=== PATIENT | female | born 1955 | race Caucasian/White ===

== ENCOUNTER → 2022-02-04 12:25 | Outpatient (CLI) | payer MEDICARE, OTHER, SELFPAY ==
--- NOTE | 2022-02-04 | DI.RAD.S_ITS ---
PROCEDURE: XR WRIST LT MIN 3V INDICATIONS: Pain in left hand TECHNIQUE: 4 views of the wrist were acquired. COMPARISON: None. FINDINGS: Bones: No fractures or dislocations. No suspicious bony lesions. Moderate to severe 1st CMC joint space narrowing with periarticular osteophyte formation. Juxta-articular lucencies involving the lunate, scaphoid and the 1st CMC joint. Scaphoid view: Intact scaphoid. Soft tissues: No suspicious soft tissue calcifications. IMPRESSION: 1. 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 2. Juxta-articular lucencies consistent with subchondral cystic change versus bony erosions. Dictated by: Jonel Dunbar [facility] Interpreted: Marina Pham MD on 02/04/2022 at 13:35 Transcribed by: OSVALDO on 02/04/2022 at 13:37 Approved by: Marina Pham M.D. on 02/04/2022 at 14:00
--- NOTE | 2022-02-04 | DI.RAD.S_ITS ---
PROCEDURE: XR HAND LT MIN 3V INDICATIONS: Pain in left hand TECHNIQUE: 3 views of the hand(s) acquired. COMPARISON: None. FINDINGS: Bones: No fractures or dislocations. Carpal bones are normally aligned. No suspicious bony lesions. Polyarticular joint space narrowing with periarticular osteophytosis, most notably and moderate to severe involving the 1st CMC joint. Juxta-articular lucencies involve the 1st CMC joint, the 1st and 3rd MCP joints as well as multiple interphalangeal joints. Soft tissues: No suspicious soft tissue calcifications. IMPRESSION: 1. Diffuse joint degeneration, most notably and moderate to severe involving the 1st CMC joint. 2. Juxta-articular lucencies consistent with subchondral cystic change versus bony erosions. Dictated by: Jonel Dunbar [facility] Interpreted: Marina Pham MD on 02/04/2022 at 13:34 Transcribed by: OSVALDO on 02/04/2022 at 13:35 Approved by: Marina Pham M.D. on 02/04/2022 at 14:00
== END ==
PROVIDERS: PCP Physician Assistant; Referring Provider Physician Assistant; Visit Provider Physician Assistant
DX: M18.12 Unilateral primary osteoarthritis of first carpometacarpal joint, left hand (principal); M79.642 Pain in left hand
CPT/HCPCS: 73110; 73130

== ENCOUNTER → 2022-06-04 14:06 | Outpatient (CLI) | payer MEDICARE, OTHER, SELFPAY ==
--- NOTE | 2022-06-04 | DI.RAD.S_ITS ---
PROCEDURE: XR DEXA AXIAL SKELETON INDICATIONS: ROUTINE SCREENING COMPARISON: None. FINDINGS: This blank DEXA report has been sent in error by the PACS system. The correct and complete report will be forthcoming in 1-2 days. Thank you for your patience and understanding. Dictated by: Kathryn Live M.D. on 06/04/2022 at 16:19 Transcribed by: LAST on 06/04/2022 at 16:19 Approved by: Kathryn Live M.D. on 06/04/2022 at 16:43
--- NOTE | 2022-06-04 | DI.MG.S_ITS ---
BILATERAL DIGITAL SCREENING MAMMOGRAM 3D/2D WITH CAD: 06/04/2022 CLINICAL: Routine screening. Comparison is made to exams dated: 11/05/2019 mammogram, 02/20/2018 mammogram, and 02/15/2017 mammogram - outside facility. There are scattered fibroglandular elements in both breasts. Current study was also evaluated with a Computer Aided Detection (CAD) system. No significant masses, calcifications, or other findings are seen in either breast. There has been no significant interval change. IMPRESSION: NEGATIVE There is no mammographic evidence of malignancy. A 1 year screening mammogram is recommended. Based on the Tyrer Cuzick model (a risk assessment model) the patient's lifetime risk is 6.7% and her 10 year risk is 3.2%. According to the ACR, ACS, and NCCN guidelines, an annual breast MRI exam along with mammogram is recommended if the patient's lifetime risk is 20% or greater. This exam was interpreted at Station ID: [id number]. NOTE: For mammograms, a report in lay terms will be sent to the patient. Approximately 15% of breast malignancies will not be visualized mammographically. In the management of a palpable breast mass, a negative mammogram must not discourage biopsy of a clinically suspicious lesion. Electronically Signed By: Tessa nation/hector:06/04/2022 16:38:48 letter sent: Normal Exam ACR BI-RADS Category 1: Negative 3341F
== END ==
PROVIDERS: PCP Physician Assistant; Referring Provider Physician Assistant; Visit Provider Physician Assistant
DX: Z12.31 Encounter for screening mammogram for malignant neoplasm of breast (principal); Z13.820 Encounter for screening for osteoporosis; M81.0 Age-related osteoporosis without current pathological fracture; Z78.0 Asymptomatic menopausal state; Z87.311 Personal history of (healed) other pathological fracture
CPT/HCPCS: 77063; 77067; 77080

== ENCOUNTER → 2022-09-17 13:17 | Outpatient (CLI) | payer MEDICARE, OTHER, SELFPAY ==
[2022-09-17 15:09] LABS: COVID19 -Nasal RAPID Negative (Negative)
== END ==
PROVIDERS: PCP Physician Assistant; Visit Provider Surgery
DX: Z01.812 Encounter for preprocedural laboratory examination (principal); Z20.822 Contact with and (suspected) exposure to COVID-19
CPT/HCPCS: 87635; C9803

== ENCOUNTER 2022-09-20 08:23 | Day surgery (SDC) | payer MEDICARE, OTHER, SELFPAY ==
--- NOTE | 2022-09-20 | PATH_ITS ---
[facility] Accession Number: [id number] . 01 Material submitted: . PART A: colon - CECAL POLYP PART B: colon - ASCENDING COLON POLYP X2 . 01 Diagnosis: A. Cecal Polyp, Biopsies: Tubular adenoma. . B. Ascending Colon Polyps, Biopsies: Tubular adenoma x2. MRV 09/22/2022 1320 Local . 01 Electronically signed: . Filippo Lane MD, PhD, Pathologist NPI- [id number] . 01 Gross description: . Part A: CECAL POLYP: Received in formalin is 1 fragment(s) of cummins, soft tissue measuring 0.7 x 0.2 x 0.2 cm submitted entirely in 1 cassette(s) Part B: ASCENDING COLON POLYP X2: Received in formalin are 2 fragment(s) of cummins, soft tissue measuring 0.1 x 0.1 x 0.1 cm in aggregate submitted entirely in 1 cassette(s) /BRIANNA 09/22/2022 0038 Local . 01 Pathologist provided ICD-10: D12.0, D12.2 . 01 CPT . 406014, 473900 Specimen Comment: A courtesy copy of this report has been sent to [phone] Performed at: 01 [facility] [address] [place] [address] [address], [place], [place] [id number] MD Mendel Christian MD Phone: [phone]
[2022-09-20 08:45] VITALS: BP 107/63; PULSE 76; RESP 18; TEMP 36.8; O2SAT 96; BMI 24.2
[2022-09-20] MEDS: SODIUM CHLORIDE 0.9% 1,000 ML 84 ML IV (08:57)
--- NOTE | 2022-09-20 09:47 | PM.HP.1 ---
History of Present Illness History of Present Illness Date Patient Seen: 09/20/22 Time Patient Seen: 09:47 Chief complaint: DX COLONOSCOPY Narrative: Personal history of colon polyps Patient History Surgical History Previous section Family & Social History Social History: household members spouse Tobacco & Substance use: Smoking Status Never smoker alcohol intake never Substance Use Type does not use Meds Home Medications and Allergies Home Medications Medication Instructions Recorded Confirmed Type alendronate 70 mg tablet 70 mg PO WEEKLY 09/20/22 09/20/22 History aspirin 81 mg chewable tablet 81 mg PO DAILY 09/20/22 09/20/22 History atorvastatin 40 mg tablet 40 mg PO DAILY 09/20/22 09/20/22 History hydrocortisone 5 mg tablet See Rx Instructions .Route .COMPLEX 09/20/22 09/20/22 History levothyroxine 75 mcg tablet 75 mcg PO DAILY 09/20/22 09/20/22 History sertraline 100 mg tablet 100 mg PO DAILY 09/20/22 09/20/22 History sumatriptan succinate 50 mg tablet 50 - 100 mg PO PRN PRN Migraine 09/20/22 09/20/22 History Headache Allergies Allergy/AdvReac Type Severity Reaction Status Date / Time No Known Drug Allergies Allergy Verified 09/20/22 08:43 Review of Systems Review of Systems ROS: Yes All systems reviewed with the patient and are negative except as otherwise documented Exam Vital Signs (past 8 hours): - 09/20/22 08:45 Temperature 98.2 F Pulse Rate 76 Respiratory Rate 18 Blood Pressure 107/63 Pulse Oximetry 96 Oxygen Delivery Method Room Air Oxygen Flow Rate 0 Oxygen Delivery Method Room Air Oxygen Flow Rate 0 Const General: cooperative HENMT Head: normal to inspection Eyes General: appearance normal, both eyes and all related structures Neck Neck: normal visual inspection Chest Chest: normal inspection of the chest Resp Effort & Inspection: normal respiratory effort Cardio Rate: regular rate GI Inspection: normal to inspection Skin General: no rashes or lesions noted Neuro General: patient alert and patient awake Extrem General: normal to inspection and no pedal edema Psych Appearance: grossly normal Assessment & Plan Assessment & Plan narrative: 67-year-old female with a personal history of colon polyps. Repeat colonoscopy is pursued today. Time Spent With Patient Critical Care time: I spent a total of [] minutes of critical care time on this patient's care today; this time is exclusive of procedural time.
--- NOTE | 2022-09-20 09:48 | PM.PREOP ---
Pre-operative Note COVID-19 COVID-19 status: Negative Result date/Date tested (Pos, Neg/Pending): 09/17/22 Criteria for continued procedure: Possibility delay results in more complex future surgery or treatment Interval Note History & Physical reviewed/Exam performed by Physician: Yes Changes to H&P: No ASA Class (for procedural sedation): II
--- NOTE | 2022-09-20 09:58 | SUR.OPER ---
GLASSES TO PACU IN A LABELED BAG
--- NOTE | 2022-09-20 10:11 | P.OP.COLON_ITS ---
Operative Date/Time/Diagnoses Date of procedure: 09/20/22 Time of procedure: 10:11 Pre-op diagnosis: Colon polyp history Post-op diagnosis: same Procedure & Clinicians Study performed: Colonoscopy with cold forceps and cold snare polypectomies Same procedure as scheduled: Yes Indications: Colon polyp history Surgeon: Brian Smith Procedure Notes SCOAP/Timeout: Done Procedure in detail: After the risks and benefits were explained, written and verbal informed consent was obtained. The patient was brought into the procedure room and placed into the left lateral decubitus position. Please see nurse supervisor green end department notes for sedation details. Digital rectal examination was accomplished. The scope was introduced into the patient and advanced under direct visualization to the cecum as identified by the appendiceal orifice and ileocecal valve. The scope was slowly withdrawn to carefully examine the mucosa for any defects or lesions. Comprehensive imaging was accomplished throughout the rectum including the den landis line. The colon was decompressed, the scope was then removed from the patient who tolerated the procedure well. Pediatric colonoscope Bowel prep adequate Scope withdrawal time: 11 minutes Sedation minutes: 18 Complications: none Impression: There was a 5 mm sessile polyp removed with cold snare in the cecum. In the ascending region there were 2 diminutive polyps removed with cold forceps. No additional mucosal pathology was appreciated throughout. Endoscopic diagnosis Small right colon polyps x3 Post-procedure Plan for aftercare: 1. Await histopathology 2. Surveillance colonoscopy will be contingent on pathology results. Disposition: PACU
[2022-09-20 10:13] VITALS: BP 109/89; PULSE 80; RESP 16; TEMP 36.3; O2SAT 97
[2022-09-20 10:19] VITALS: BP 100/64; PULSE 73; RESP 12; TEMP 36.3; O2SAT 98
[2022-09-20 10:25] VITALS: BP 109/72; PULSE 71; RESP 14; TEMP 36.3; O2SAT 98
== END 2022-09-20 10:35 | disposition home or self-care (01) ==
PROVIDERS: PCP Physician Assistant; Referring Provider Internal Medicine Gastroenterology; Visit Provider Internal Medicine Gastroenterology
PROC: 0DJD8ZZ Inspection of Lower Intestinal Tract, Via Natural or Artificial Opening Endoscopic (ICD-10-PCS; CPT 45378; principal; 2022-09-20 09:30)
DX: Z12.11 Encounter for screening for malignant neoplasm of colon (principal); Z86.010 Personal history of colon polyps; D12.0 Benign neoplasm of cecum; D12.2 Benign neoplasm of ascending colon
CPT/HCPCS: 45385; 45380; J2704

== ENCOUNTER → 2023-03-31 08:05 | Outpatient (CLI) | payer MEDICARE, OTHER, SELFPAY ==
--- NOTE | 2023-03-31 08:07 | DI.RAD.S_ITS ---
PROCEDURE: XR LUMBAR SPINE MIN 4V INDICATIONS: LOW BACK PAIN TECHNIQUE: 5 views of the lumbar spine were acquired, including bilateral oblique views. COMPARISON: None. FINDINGS: Bones: 4 nonrib-bearing vertebrae are present. Mild dextrocurvature of the lumbar spine. There is grade 1 anterolisthesis of L4 on S1 likely related to left-sided L4 pars defect. No acute vertebral body compression fractures. No suspicious bony lesions. Moderate multilevel lumbar spondylosis and facet arthropathy. Soft tissues: Overlying bowel gas pattern is normal. No suspicious soft tissue calcifications. IMPRESSION: Grade 1 anterolisthesis of L4 on S1 likely related to left-sided L4 pars defect. Moderate multilevel lumbar spondylosis and facet arthropathy. No acute osseous abnormality seen. Dictated by: Pancho Ferris M.D. on 03/31/2023 at 9:36 Approved by: Pancho Ferris M.D. on 03/31/2023 at 9:39
--- NOTE | 2023-03-31 10:13 | DI.RAD.S_ITS ---
PROCEDURE: XR HIP W PEL IF DONE DOROTHY MIN 4V INDICATIONS: Hip pain TECHNIQUE: AP pelvis with lateral view(s) of the right and left hip(s). COMPARISON: None. FINDINGS: Bones: No fractures or dislocations. Pelvic ring appears intact. No suspicious bony lesions. Possible/equivocal joint space narrowing and spurring of the hips bilaterally. Soft tissues: The visualized bowel gas pattern is normal. No suspicious soft tissue calcifications. IMPRESSION: No acute osseous abnormality. If symptoms persist, follow-up radiographs and/or CT or MRI may be helpful for further evaluation. Dictated by: Torres Sanchez M.D. on 03/31/2023 at 13:37 Approved by: Torres Sanchez M.D. on 03/31/2023 at 13:43
== END ==
PROVIDERS: PCP Physician Assistant; Referring Provider Anesthesiology; Visit Provider Anesthesiology
DX: M43.17 Spondylolisthesis, lumbosacral region (principal); M54.50 Low back pain, unspecified; M25.552 Pain in left hip; M25.551 Pain in right hip; M47.816 Spondylosis without myelopathy or radiculopathy, lumbar region; G89.29 Other chronic pain; Z68.26 Body mass index [BMI] 26.0-26.9, adult
CPT/HCPCS: 72110; 73522; 99214

== ENCOUNTER → 2023-05-05 08:46 | Outpatient (CLI) | payer MEDICARE, OTHER, SELFPAY ==
--- NOTE | 2023-05-05 08:47 | DI.MRI.S_ITS ---
PROCEDURE: MR LUMBAR SPINE WO CON INDICATIONS: Chronic low back pain, L4 pars defect TECHNIQUE: Noncontrast sagittal T1 spin echo and T2 fast echo, sagittal STIR, and T2 fast spin echo through the lumbar spine. In cases with scoliosis, additional coronal T2 fast spin echo may be performed. COMPARISON: [facility], CR, XR LUMBAR SPINE MIN 4V, 03/31/2023, 8:04. FINDINGS: Image quality: Excellent. Alignment and Curvature: There is trace L4 on L5 and grade 1 L5 on S1 anterolisthesis. Bone Marrow: Marrow is of normal overall signal. No acute vertebral body compression fractures. Spinal Cord: Conus medullaris terminates at the L1 level. Visualized cord demonstrates normal signal and size. Paraspinous Soft Tissues: No paravertebral masses. T12-L1: Moderate disc desiccation and height loss. Mild disc bulge. No canal stenosis. No foraminal stenosis. L1-L2: Moderate disc desiccation and height loss. Broad-based disc bulge. No canal stenosis. Mild left foraminal stenosis. No right foraminal stenosis. L2-L3: Mild disc desiccation and height loss. Moderate facet ligamentum flavum hypertrophy. No canal stenosis. Mild left foraminal stenosis. No right foraminal narrowing. L3-L4: Moderate disc desiccation and height loss. Moderate facet and ligamentum flavum hypertrophy. Moderate canal stenosis. Moderate right and mild left foraminal narrowing. L4-L5: Trace anterolisthesis. Moderate disc desiccation and height loss. Severe facet ligamentum flavum hypertrophy. No canal stenosis. Mild right foraminal stenosis. L5-S1: Grade 1 anterolisthesis. There are displaced bilateral pars interarticularis defects. Broad-based disc bulge. Vacuum disc phenomenon. Mild canal stenosis. Severe right and moderate left neural foraminal stenosis. There is flattening of the bilateral exiting nerve roots. IMPRESSION: 1. L5-S1 spondylolysis and spondylolisthesis. 2. Mild to moderate disc desiccation and height loss throughout the lumbar spine. 3. Broad-based disc bulge and facet and ligamentum flavum hypertrophy at L3-4 with resultant moderate canal stenosis. 4. Moderate right L3-4 foraminal stenosis and moderate left L5-S1 foraminal stenosis. 5. Severe right L5-S1 foraminal stenosis. Dictated by: Pricila Whiting M.D. on 05/05/2023 at 11:20 Approved by: Pricila Whiting M.D. on 05/05/2023 at 11:26
== END ==
PROVIDERS: PCP Physician Assistant; Referring Provider Anesthesiology; Visit Provider Anesthesiology
DX: M43.06 Spondylolysis, lumbar region (principal); M43.07 Spondylolysis, lumbosacral region; M47.816 Spondylosis without myelopathy or radiculopathy, lumbar region; M51.36 Other intervertebral disc degeneration, lumbar region; M48.07 Spinal stenosis, lumbosacral region; M48.061 Spinal stenosis, lumbar region without neurogenic claudication; M54.50 Low back pain, unspecified
CPT/HCPCS: 72148

== ENCOUNTER → 2023-06-17 09:54 | Outpatient (CLI) | payer MEDICARE, OTHER, SELFPAY ==
--- NOTE | 2023-06-17 | DI.MG.S_ITS ---
BILATERAL DIGITAL SCREENING MAMMOGRAM 3D/2D WITH CAD: 06/17/2023 CLINICAL: Routine screening. Family history of breast cancer. Comparison is made to exams dated: 06/04/2022 mammogram - [facility], 11/05/2019 mammogram, and 02/20/2018 mammogram - outside facility. There are scattered areas of fibroglandular density in both breasts (category b / 25%-50% glandular tissue). Current study was also evaluated with a Computer Aided Detection (CAD) system. No significant masses, calcifications, or other findings are seen in either breast. There has been no significant interval change. IMPRESSION: NEGATIVE There is no mammographic evidence of malignancy. A 1 year screening mammogram is recommended. Based on the Tyrer Cuzick model (a risk assessment model) the patient's lifetime risk is 6.4% and her 10 year risk is 3.2%. According to the ACR, ACS, and NCCN guidelines, an annual breast MRI exam along with mammogram is recommended if the patient's lifetime risk is 20% or greater. This exam was interpreted at Station ID: [id number]. NOTE: For mammograms, a report in lay terms will be sent to the patient. Approximately 15% of breast malignancies will not be visualized mammographically. In the management of a palpable breast mass, a negative mammogram must not discourage biopsy of a clinically suspicious lesion. Electronically Signed By: Pancho elliott/hector:06/17/2023 10:49:00 letter sent: Normal Exam ACR BI-RADS Category 1: Negative 3341F
== END ==
PROVIDERS: PCP Physician Assistant; Referring Provider Physician Assistant; Visit Provider Physician Assistant
DX: Z12.31 Encounter for screening mammogram for malignant neoplasm of breast (principal); Z80.3 Family history of malignant neoplasm of breast
CPT/HCPCS: 77063; 77067

== ENCOUNTER → 2024-06-14 11:47 | Outpatient (CLI) | payer MEDICARE, OTHER, SELFPAY | PROVIDERS: PCP Physician Assistant; Referring Provider Internal Medicine; Visit Provider Internal Medicine | DX: R05.3 Chronic cough (principal); Z87.891 Personal history of nicotine dependence | CPT/HCPCS: 94060; 94726; 94729 ==

== ENCOUNTER → 2024-06-18 12:40 | Outpatient (CLI) | payer MEDICARE, OTHER, SELFPAY ==
--- NOTE | 2024-06-18 12:42 | DI.RAD.S_ITS ---
PROCEDURE: XR DEXA AXIAL SKELETON INDICATIONS: ROUTINE COMPARISON: [facility], , XR DEXA AXIAL SKELETON, 06/04/2022, 14:26. FINDINGS: Lumbar Spine: Bone mineral density 0.772 g/cm2, T score -2.5 , -2.9 Left Hip: Bone mineral density 0.694 g/cm2, T score -2.0, -1.7 Left Femoral Neck: Bone mineral density 0.564 g/cm2, T score -2.6, -2.5 Right Hip: Bone mineral density 0.694 g/cm2, T score -2.0, -1.9 Right Femoral Neck: Bone mineral density 0.585 g/cm2, T score -2.4, -2.6 Fracture Risk Calculation (when applicable): 10-year fracture risk of a major osteoporotic fracture 21% and of a hip fracture 5.0% (T score greater or equal to -1.0 to: NORMAL) (T score from -1.1 to -2.4: OSTEOPENIA) (T score less than or equal to -2.5: OSTEOPOROSIS) IMPRESSION: There is osteoporosis of the lumbar spine and left femoral neck. There is osteopenia of the right hip and right femoral neck. Follow-up guidelines as follows: Osteoporosis: Consider a repeat DEXA and Vertebral Fracture Assessment (VFA) exam in 2 years or sooner if medically necessary, to reassess this patient's status. Osteopenia: Consider a repeat DEXA in 2-3 years to reassess this patient's status, or if there is a new clinical indication. Normal: Consider a repeat DEXA in 5 years or sooner, or if there is a new clinical indication. All treatment decisions require clinical judgment and consideration of individual patient factors, including patient preferences, comorbidities, previous drug use, risk factors not captured in the FRAX model (e.g., frailty, falls, vitamin D deficiency, increased bone turnover, interval significant decline in bone density ) and possible under- or over-estimation of fracture risk by FRAX. In addition, the NOF Guide recommends that FDA-approved medical therapies be considered in postmenopausal women and men age >= 50 years with a: * Hip or vertebral (clinical or morphometric) fracture * T-score of <=-2.5 at the spine or hip * Ten-year fracture probability by FRAX of >= 3% for hip fracture or >=20% for major osteoporotic fracture. People with diagnosed cases of osteoporosis or at high risk for fracture should have regular bone mineral density tests. For patients eligible for Medicare, routine testing is allowed once every 2 years. The testing frequency can be increased to one year for patients who have rapidly progressing disease, those who are receiving or discontinuing medical therapy to restore bone mass, or have additional risk factors. Dictated by: Scott Trimble M.D. on 06/18/2024 at 16:32 Approved by: Scott Trimble M.D. on 06/18/2024 at 16:37
--- NOTE | 2024-06-18 12:42 | DI.MG.S_ITS ---
BILATERAL DIGITAL SCREENING MAMMOGRAM 3D/2D WITH CAD: 06/18/2024 CLINICAL: Routine screening. Family history of breast cancer. Comparison is made to exams dated: 06/17/2023 mammogram, 06/04/2022 mammogram - [facility], and 11/05/2019 mammogram - outside facility. There are scattered areas of fibroglandular density in both breasts (category b / 25%-50% glandular tissue). Current study was also evaluated with a Computer Aided Detection (CAD) system. No significant masses, calcifications, or other findings are seen in either breast. There has been no significant interval change. IMPRESSION: NEGATIVE There is no mammographic evidence of malignancy. A 1 year screening mammogram is recommended. Based on the Tyrer Cuzick model (a risk assessment model) the patient's lifetime risk is 6.1% and her 10 year risk is 3.2%. According to the ACR, ACS, and NCCN guidelines, an annual breast MRI exam along with mammogram is recommended if the patient's lifetime risk is 20% or greater. This exam was interpreted at Station ID: [id number]. NOTE: For mammograms, a report in lay terms will be sent to the patient. Approximately 15% of breast malignancies will not be visualized mammographically. In the management of a palpable breast mass, a negative mammogram must not discourage biopsy of a clinically suspicious lesion. Electronically Signed By: Tessa nation/hector:06/18/2024 14:02:17 letter sent: Normal Exam ACR BI-RADS Category 1: Negative 3341F
== END ==
PROVIDERS: PCP Physician Assistant; Referring Provider Physician Assistant; Visit Provider Physician Assistant
DX: Z12.31 Encounter for screening mammogram for malignant neoplasm of breast (principal); Z78.0 Asymptomatic menopausal state; Z80.3 Family history of malignant neoplasm of breast; R92.323 Mammographic fibroglandular density, bilateral breasts; M81.0 Age-related osteoporosis without current pathological fracture
CPT/HCPCS: 77063; 77067; 77080

== ENCOUNTER → 2024-06-18 12:42 | Outpatient (CLI) | payer MEDICARE, OTHER, SELFPAY ==
--- NOTE | 2024-06-18 14:00 | DI.CT.S_ITS ---
PROCEDURE: CT CHEST WO CON INDICATIONS: new cough, smoking history, dyspnea on exertion TECHNIQUE: Noncontrast 5 mm thick sections acquired from the pulmonary apices to the posterior costophrenic angles. 1 mm lung window, 5 mm thick coronal and sagittal and 7 mm axial MIP reformats were then acquired. For radiation dose reduction, the following was used: automated exposure control, adjustment of mA and/or kV according to patient size. COMPARISON: None. FINDINGS: Image quality: Diagnostic. Lower Neck: No enlarged lymph nodes. Thyroid: No thyroid nodules which require sonographic follow up, per consensus guidelines. Axillae: No enlarged lymph nodes. Chest Wall: There is a 2.0 cm the lipoma at the left hemidiaphragm. Bones: Unremarkable. Lungs and Pleura: No pneumothorax or pleural effusions. No consolidation. There is a 0.2 cm and 0.3 cm pulmonary nodule within the left lung apex. Mild bronchial wall thickening. Heart: Heart size is normal. No pericardial effusion. Thoracic Vessels: The aorta and pulmonary arteries demonstrate normal size. Thick coronary artery calcifications. Thick arthrosclerotic calcifications are seen at the origin of the brachiocephalic artery, left common carotid and left subclavian artery. Mediastinum and Sisi: No enlarged lymph nodes. Esophagus: No wall thickening. No hiatal hernia. Upper Abdomen: Calcifications are seen within the pancreas. IMPRESSION: 1. No evidence for a pulmonary mass or consolidation. 2. There are 2 sub 6 millimeter pulmonary nodules within the left lung apex. Due to smoking history, a follow-up CT chest within 12 months is optional. 3. There is mild bronchial wall thickening. Clinically correlate for symptoms of bronchitis. 4. Thick coronary artery calcifications. 5. Calcifications are seen within the pancreas. This can be seen as a sequela of chronic pancreatitis. Dictated by: Scott Trimble M.D. on 06/19/2024 at 9:44 Approved by: Scott Trimble M.D. on 06/19/2024 at 11:14
== END ==
PROVIDERS: PCP Physician Assistant; Referring Provider Internal Medicine; Visit Provider Internal Medicine
DX: R05.9 Cough, unspecified (principal); R06.09 Other forms of dyspnea; F17.211 Nicotine dependence, cigarettes, in remission; M81.0 Age-related osteoporosis without current pathological fracture; Z78.0 Asymptomatic menopausal state; R91.8 Other nonspecific abnormal finding of lung field; K86.89 Other specified diseases of pancreas; D17.1 Benign lipomatous neoplasm of skin and subcutaneous tissue of trunk; I25.10 Atherosclerotic heart disease of native coronary artery without angina pectoris
CPT/HCPCS: 71250; 77063; 77080

== ENCOUNTER → 2025-03-18 11:29 | Outpatient (CLI) | payer MEDICARE, OTHER, SELFPAY ==
--- NOTE | 2025-03-18 11:32 | DI.US.S_ITS ---
PROCEDURE: US VENOUS INSUFFICIENCY BILAT INDICATIONS: adema TECHNIQUE: Real time scanning was performed of the lower extremity venous system, with imaging documentation, as well as Color and pulse Doppler interrogation. COMPARISON: None. FINDINGS: RIGHT LOWER EXTREMITY: The deep veins are normally compressible, and free of intraluminal thrombus. Color and pulse Doppler demonstrate normal intravascular flow. There is normal augmentation with distal compression maneuver. No reflux. Greater saphenous vein (GSV): Normally 4 mm or less in diameter, with any reflux less than 0.5 seconds. Saphenofemoral junction (SFJ): 9 mm and reflux, duration 0.6 seconds Proximal GSV: 3 mm. No reflux. Mid GSV: 3 mm. No reflux. Distal GSV: 2 mm. No reflux. Calf GSV: 1 mm, and no reflux. Anterior accessory GSV (AAGSV): No reflux Small saphenous vein (SSV): No reflux Recycling Attendant veins: 2 mm calf design center consultant with reflux, duration 4.5 seconds LEFT LOWER EXTREMITY: The deep veins are normally compressible, and free of intraluminal thrombus. Color and pulse Doppler demonstrate normal intravascular flow. There is normal augmentation with distal compression maneuver. No reflux. Greater saphenous vein (GSV): Normally 4 mm or less in diameter, with any reflux less than 0.5 seconds. Saphenofemoral junction (SFJ): 8 mm. No reflux. Proximal GSV: 4 mm. No reflux. Mid GSV: 3 mm. No reflux. Distal GSV: 2 mm. No reflux. Calf GSV: 1 mm. No reflux. Anterior accessory GSV (AAGSV): No reflux greater than 0.5 seconds. Small saphenous vein (SSV): No reflux. Recycling Attendant veins: 3 mm calf design center consultant with no significant reflux. IMPRESSION: 1. Reflux involving the right saphenofemoral junction. 2. Bilateral calf perforators. Dictated by: Jonel Dunbar [facility] Interpreted: Boo Jacques MD on 03/19/2025 at 11:59 Approved by: Boo Jacques M.D. on 03/21/2025 at 10:40
== END ==
PROVIDERS: PCP Physician Assistant; Referring Provider Physician Assistant; Visit Provider Physician Assistant
DX: I87.2 Venous insufficiency (chronic) (peripheral) (principal); R60.0 Localized edema
CPT/HCPCS: 93970